=== PATIENT | male | born 1950 | race Caucasian/White ===

== ENCOUNTER → 2016-12-26 | Outpatient (CLI) | payer BC | LOC: CIMAGING 09:46 | PROVIDERS: ATTEND Family Medicine | DX: R07.81 Pleurodynia (principal) | CPT/HCPCS: 71022-PO ==

== ENCOUNTER 2017-08-13 17:16 | Emergency (ER) | payer BC ==
--- NOTE | 2017-08-13 17:37 | CPEKG ---
Heart Rate: 54 RR Interval: 1111 P-R Interval: 172 QRSD Interval: 84 QT Interval: 396 QTC Interval: 376 P [place]: 56 QRS [place]: -14 T Wave [place]: 19 EKG Severity - BORDERLINE ECG - EKG Impression: SINUS RHYTHM EKG Impression: PROBABLE LEFT ATRIAL ABNORMALITY Electronically Signed By: Oni Kirkland 13-Aug-2017 19:55:19
--- NOTE | 2017-08-13 17:46 | EDPHY ---
H & P Time Seen by Provider: 08/13/17 17:37 HPI/ROS: Chief complaint. Atrial fibrillation HPI. 66-year-old male with history of atrial fibrillation presents with complaint of episode of rapid and irregular heart rate that began about midnight. It was fast and pounding and irregular. He continued this morning and he took a metoprolol. He he also felt that maybe exercise could be helpful so he played golf this morning. However he was very lightheaded and felt like he could pass out with standing. He feels somewhat better now. He does have some burning chest discomfort and cough that he thinks is caused by developing illness. His chest hurts more when he coughs but not with taking a deep breath. He is on Eliquis. He has had similar symptoms of atrial fibrillation previously and has previously taken metoprolol for this. However this time the symptoms continued longer than usual. ROS Constitutional. Lightheaded Eyes. no problems with vision ENT. no sore throat, no nasal drainage Cardiovascular. Burning precordial chest discomfort with coughing; irregular heartbeat that was fast and pounding Respiratory. No short rest but cough Abdominal. no abdominal pain, no nausea/vomiting, no diarrhea . no problems urinating MS. no calf pain/swelling, no neck/back pain, no joint pain Skin. no rash Lymph. no swollen glands Neuro. no headache, no dizziness, no difficulty walking or with speech Past Medical/Surgical History: Past medical history asthma and atrial fibrillation. Patient is on Eliquis Social History: , daily smoker, no alcohol Smoking Status: Current some day smoker Physical Exam: General Appearance: Alert well-developed male mild distress vital signs are stable. Heart rate 58. Blood pressure 107/71 Eyes: Pupils equal and round no pallor or injection. ENT, Mouth: Mucous membranes are moist. Respiratory: There are no retractions, lungs are clear to auscultation. Cardiovascular: Regular rate and rhythm. Gastrointestinal: Abdomen is soft and nontender, no masses, bowel sounds normal. Neurological: Awake and alert, sensory and motor exams grossly normal. Skin: Warm and dry, no rashes. Musculoskeletal: Neck is supple nontender. Extremities symmetrical, full range of motion. Psychiatric: Patient is oriented X 3, there is no agitation. Constitutional: Initial Vital Signs Temperature (C) 36.7 C 08/13/17 17:23 Heart Rate 58 L 08/13/17 17:23 Respiratory Rate 17 08/13/17 17:23 Blood Pressure 107/71 08/13/17 17:23 O2 Sat (%) 96 08/13/17 17:23 O2 Delivery Mode Room Air Allergies/Adverse Reactions: No Known Allergies Allergy (Verified 08/13/17 17:22) Home Medications: Medication Instructions Recorded Albuterol Hfa Anes Only 04/13/16 Corticosteriod, Inhaled 04/13/16 Eliquis 08/13/17 Metoprolol Oral Susp (*) 08/13/17 Propafenone HCl 08/13/17 Medical Decision Making - Diagnostics EKG Interpretation: EKG interpreted by me shows a normal sinus rhythm with normal interval and axis. QRS is normal there is no significant ST elevation or depression. No arrhythmia. The rate is 54 Imaging Results: Imaging Impressions Chest X-Ray 08/13/17 18:00 Impression: Negative portable chest View chest x-ray interpreted by me is negative. No evidence for pneumonia Procedures: IV normal saline with 1 L of saline given because of slightly low blood pressure ED Course/Re-evaluation: Re-evaluation the p.m.. The patient and I and his discussed imaging, EKG, laboratory results. The patient feels well. His blood pressure currently is 114/63 after 1 L of fluid. We will road test this patient before making disposition Patient feels well during ambulation in the department. He has no symptoms. He feels well to go home. He is offered admission however he feels fine and does not wish to stay. Patient is encouraged in easy activity as well as criteria for return importance of follow-up and further evaluation. He has an appointment with his insurance risk manager tree he 0 on Monday Differential Diagnosis: Sounds like the patient had an episode of atrial fibrillation last night and today. I considered acute coronary syndrome but I am not finding evidence of this with normal troponin. He is back in sinus rhythm. I think is light headedness was due to low blood pressure secondary to taking metoprolol. The workup normal and he feels well to go home. - Data Points Laboratory Results: Laboratory Results 08/13/17 17:40 08/13/17 17:40 08/13/17 08/13/17 17:40 17:40 WBC 10.92 10^3/uL H 10^3/uL (3.80-9.50) RBC 5.46 10^6/uL 10^6/uL (4.40-6.38) Hgb 15.8 g/dL g/dL (13.7-17.5) Hct 46.4 % % (40.0-51.0) MCV 85.0 fL fL (81.5-99.8) MCH 28.9 pg pg (27.9-34.1) MCHC 34.1 g/dL g/dL (32.4-36.7) RDW 12.6 % % (11.5-15.2) Plt Count 224 10^3/uL 10^3/uL (150-400) MPV 10.0 fL fL (8.7-11.7) Neut % (Auto) 70.8 % % (39.3-74.2) Lymph % (Auto) 17.6 % % (15.0-45.0) Collin % (Auto) 7.8 % % (4.5-13.0) Eos % (Auto) 2.7 % % (0.6-7.6) Baso % (Auto) 0.8 % % (0.3-1.7) Nucleat RBC Rel Count 0.0 % % (0.0-0.2) Absolute Neuts (auto) 7.73 10^3/uL H 10^3/uL (1.70-6.50) Absolute Lymphs (auto) 1.92 10^3/uL 10^3/uL (1.00-3.00) Absolute Monos (auto) 0.85 10^3/uL H 10^3/uL (0.30-0.80) Absolute Eos (auto) 0.30 10^3/uL 10^3/uL (0.03-0.40) Absolute Basos (auto) 0.09 10^3/uL 10^3/uL (0.02-0.10) Absolute Nucleated RBC 0.00 10^3/uL 10^3/uL (0-0.01) Immature Gran % 0.3 % % (0.0-1.1) Immature Gran # 0.03 10^3/uL 10^3/uL (0.00-0.10) Sodium 143 mEq/L mEq/L (134-144) Potassium 4.3 mEq/L mEq/L (3.5-5.2) Chloride 110 mEq/L mEq/L (97-110) Carbon Dioxide 21 mEq/l L mEq/l (22-31) Anion Gap 12 mEq/L mEq/L (8-16) BUN 21 mg/dL mg/dL (7-23) Creatinine 1.0 mg/dL mg/dL (0.7-1.3) Estimated GFR > 60 Glucose 87 mg/dL mg/dL (70-100) Calcium 9.5 mg/dL mg/dL (8.5-10.4) Troponin I < 0.012 ng/mL ng/mL (0.000-0.034) Medications Given: Discontinued Medications Sodium Chloride (Ns) 1,000 mls @ 0 mls/hr IV EDNOW ONE; Wide Open PRN Reason: Protocol Stop: 08/13/17 18:01 Last Admin: 08/13/17 18:30 Dose: 1,000 mls Departure - Departure Disposition: Home, Routine, Self-Care Clinical Impression: Atrial fibrillation Qualifiers: Atrial fibrillation type: paroxysmal Qualified Code(s): I48.0 - Paroxysmal atrial fibrillation Condition: Good Instructions: A-fib (Atrial Fibrillation) (ED) Additional Instructions: Return for worsening chest discomfort, trouble breathing, sense of passing out. Easy activity the next 24 hr to help keep you from passing out. Keep your appointment with Dr. Arias on Monday Referrals: Kwasi Arias MD [Primary Care Provider] - 1-2 days without fail
[2017-08-13] MEDS ORDERED: NS 1,000 ML IV ONE (18:00)
[2017-08-13 18:12] LABS: % IMMATURE GRANULYOCYTES 0.3 % (0.0-1.1); ABSOLUTE IMMATURE GRANULOCYTES 0.03 10^3/uL (0.00-0.10); ADD DIFF? NO; ADD MORPH? NO; ADD SCAN? NO; ATYPICAL LYMPHOCYTE FLAG 0 (0-99); FRAGMENT RBC FLAG 0 (0-99); HEMATOCRIT 46.4 % (40.0-51.0); HEMOGLOBIN 15.8 g/dL (13.7-17.5); LEFT SHIFT FLG 0 (0-99); LIPEMIA HEMOLYSIS FLAG 90 (0-99); MEAN CELL HEMOGLOBIN 28.9 pg (27.9-34.1); MEAN CELL HEMOGLOBIN CONCENTR. 34.1 g/dL (32.4-36.7); PLATELET CLUMPS FLAG 0 (0-99); PLATELET COUNT 224 10^3/uL (150-400); RED BLOOD CELL COUNT 5.46 10^6/uL (4.40-6.38); RED CELL DISTRIBUTION WIDTH 12.6 % (11.5-15.2)
[2017-08-13 18:24] LABS: ANION GAP 12 mEq/L (8-16); CALCIUM 9.5 mg/dL (8.5-10.4); CARBON DIOXIDE 21 mEq/l (22-31); CHLORIDE 110 mEq/L (97-110); GLOMERULAR FILTRATION RATE > 60; GLUCOSE 87 mg/dL (70-100); POTASSIUM 4.3 mEq/L (3.5-5.2); SODIUM 143 mEq/L (134-144)
[2017-08-13 18:35] LABS: TROPONIN I < 0.012 ng/mL (0.000-0.034)
[2017-08-13 19:07] VITALS: RESP 16
[2017-08-13 19:45] VITALS: BP 114/63; PULSE 55; TEMP 98.1; O2SAT 98
== END 2017-08-13 19:43 | disposition home or self-care (01) ==
DX: I48.0 Paroxysmal atrial fibrillation (principal); F17.200 Nicotine dependence, unspecified, uncomplicated; J45.909 Unspecified asthma, uncomplicated; E86.9 Volume depletion, unspecified; Z79.01 Long term (current) use of anticoagulants

== ENCOUNTER → 2017-12-05 | Outpatient (CLI) | payer BC ==
[~2017-12-05] MED LIST: IOPAMIDOL (ISOVUE 370) 100 ML BTL IV ONE
== END ==
LOC: FIMAGING 10:34
PROVIDERS: ATTEND Internal Medicine Cardiovascular Disease
DX: J98.4 Other disorders of lung (principal); I48.0 Paroxysmal atrial fibrillation
CPT/HCPCS: Q9967

== ENCOUNTER 2017-12-12 06:55 | Observation (INO) | payer BC ==
[2017-12-12] MEDS ORDERED: NS 1,000 ML IV ONE (07:01)
--- NOTE | 2017-12-12 07:16 | CPEKG ---
Heart Rate: 50 RR Interval: 1200 P-R Interval: 168 QRSD Interval: 84 QT Interval: 416 QTC Interval: 380 P [place]: 70 QRS [place]: -5 T Wave [place]: 23 EKG Severity - NORMAL ECG - EKG Impression: SINUS RHYTHM Electronically Signed By: Jose Martin Zhou 12-Dec-2017 08:32:01
[2017-12-12 07:43] LABS: PLATELET COUNT 216 10^3/uL (150-400)
[2017-12-12 07:52] LABS: INR 0.98 (0.83-1.16); PROTIME(PATIENT) 13.2 SEC (12.0-15.0)
[2017-12-12] MEDS ORDERED: LIDOCAINE 1% 300 MG/30 ML SDV ONE (08:15)
[2017-12-12] MEDS ORDERED: HEPARIN 10,000 UNIT/10 ML MDV (1,000 UNIT/ML) ONE (08:15)
[2017-12-12] MEDS ORDERED: HEPARIN/DEXTROSE 25,000 UNIT/500 ML BAG ONE (08:15)
[2017-12-12] MEDS ORDERED: BUPIVACAINE 0.5% 30 ML SDV ONE (08:15)
[2017-12-12] MEDS ORDERED: IOPAMIDOL (ISOVUE-300) 100 ML BTL ONE (08:16)
[2017-12-12] MEDS ORDERED: MIDAZOLAM 2 MG/2 ML VIAL IVP ONE (08:26)
--- NOTE | 2017-12-12 08:26 | PDANEPAE ---
ANE History of Present Illness Patient presents for a-fib ablation ANE Past Medical History - Cardiovascular History Hx Arrhythmias: Yes Hx Coronary Artery / Peripheral Vascular Disease: Yes - Pulmonary History Hx Asthma/Reactive Airway Disease: Yes Hx Oxygen in Use at Home: No Hx Sleep Apnea: No - Endocrine History Hx Diabetes: No ANE Review of Systems Review of Systems: - Exercise capacity Exercise capacity: >=4 METS ANE Patient History - Allergies Allergies/Adverse Reactions: No Known Allergies Allergy (Verified 08/13/17 17:22) - Home Medications Home medications: home medication list seen and reviewed Home Medications: Propafenone HCl [Rythmol 150mg (*)] 150 mg PO DAILY PRN 08/13/17 [Last Taken Unknown] Albuterol [Proventil Inhaler HFA (*)] 1 - 2 puffs IH Q4H PRN 12/08/17 [Last Taken Unknown] Budesonide/Formoterol 160/4.5 [Symbicort 160-4.5 Mcg Inh (*)] 1 puffs IH DAILY 12/08/17 [Last Taken 12/12/17 06:00] Cetirizine [ZyrTEC 10 mg (*)] 10 mg PO DAILY 12/08/17 [Last Taken 12/10/17 08:00 ] Metoprolol Tartrate [Lopressor 50 mg (*)] 50 mg PO DAILY PRN 12/08/17 [Last Taken Unknown] Omeprazole 20 mg PO DAILY 12/08/17 [Last Taken 12/11/17 15:00] - NPO status NPO Status: no food or drink >8 hours - Anes Hx Anes Hx: no prior problems - Smoking Hx Smoking Status: Current some day smoker ANE Labs/Vital Signs - Labs Result Diagrams: 12/12/17 07:15 12/12/17 07:15 - Vital Signs Height: 185.42 cm Weight: 94.347 kg ANE Physical Exam - Airway Neck exam: FROM Mallampati Score: Class 1 Mouth exam: normal dental/mouth exam, small mouth opening - Pulmonary Pulmonary: no respiratory distress - Cardiovascular Cardiovascular: regular rate and rhythym - ASA Status ASA Status: III ANE Anesthesia Plan Anesthesia Plan: general endotracheal anesthesia (RBA discussed)
[2017-12-12] MEDS ORDERED: fentaNYL 100 MCG/2 ML INJ ONE (08:28)
[2017-12-12] MEDS ORDERED: PROPOFOL 200 MG/20 ML VIAL ONE (08:29)
--- NOTE | 2017-12-12 08:33 | PDGENHP ---
History & Physical Chief Complaint: symptomatic afib History of Present Illness: palpitations Relevant Physical Exam: s1s2 rrr cta ao3 Cardiorespiratory Assessment: symptomatic paf for ablation. ct scan with ground glass appearance, had severe cold in September, sx have resolved, have asked him to make appt with cami rodriguez/lizy and his will make appt today
[2017-12-12] MEDS ORDERED: ONDANSETRON 4 MG/2 ML VIAL ONE (09:32)
[2017-12-12] MEDS ORDERED: DEXAMETHASONE 4 MG/ML VIAL ONE (09:32)
[2017-12-12] MEDS ORDERED: PROTAMINE SULFATE 50 MG/5 ML VIAL IVP ONE (10:49)
--- NOTE | 2017-12-12 11:25 | EPPROC ---
Electrophysiology Procedure Note: ELECTROPHYSIOLOGIC STUDY AND BALLOON-CATHETER MEDIATED CRYOABLATION FOR PAROXSYMAL ATRIAL FIBRILLATION Procedures performed: 98036-32 EP evaluation with RA/RV/LA pace/record, with arrhythmia induction 37507-67 EP evaluation with RA/RV pace record, insert/reposition catheter, with arrhythmia induction 18275 Atrial fibrillation ablation Intracardiac echocardiogram Transseptal puncture Fluoroscopy INDICATION: Paroxysmal atrial fibrillation PROCEDURE: The patient arrived in the Electrophysiology Laboratory in the fasting state. The right groin, left groin and right infraclavicular area were prepped and draped in the usual sterile fashion. Anesthesiologist administered general anesthesia. All catheters were placed percutaneously using the Seldinger technique and advanced into position under fluoroscopic guidance. One #7 Spanish deflectable octapolar electrode catheter was placed in the His-bundle position via the left femoral vein (2mm spacing, IVC electrode for unipolar recordings). This catheter was placed in the coronary sinus after transseptal puncture and later placed in the SVC-R subclavian vein junction to pace the right phrenic nerve during right pulmonary vein ablation. One #8 Spanish AcuNaV ultrasound catheter was placed in the left femoral vein and advanced into the right atrium. One #4 Spanish sheath was inserted into the left femoral artery via percutaneous technique and used for continuous arterial blood pressure monitoring and intermittent ACT determination. Programmed stimulation was performed from the right atrium, left atrium (CS) and right ventricle. There was no evidence of AV accessory pathway. Intracardiac echo evaluation of the left atrium and pulmonary veins was performed. Baseline ACT was drawn and heparin bolus was administered and heparin drip was started prior to transseptal puncture. ACT was checked every 15 minutes and maintained in the range of 350-400 seconds. One 14Fr short sheath was placed in the right femoral vein. One 8Fr SL1 sheath was advanced into the right atrium via the 14Fr short sheath. Transseptal puncture was performed under intracardiac ultrasound, fluoroscopic and hemodynamic guidance placing the sheath into the left atrium. [place]ell RF needle ( C0 curve) was used. The mean left atrial pressure was 6 mmHg. Pulmonary vein angiogram was done using SL1 sheath. CT angiography of pulmonary veins was done previously. There were distinct LSPV, LIPV, RSPV and RIPV. The SL1 sheath was exchanged for a DTU CORPtronic Flexcath sheath using an Amplatz stiff guide wire. A 28 mm Cryoballoon catheter with a 20 mm Achieve catheter was placed via the sheath into the left atrium. Intracardiac ultrasound and PV angiograms were used to assist in placing the mapping catheter at the antrum of the pulmonary veins. All pulmonary veins were isolated successfully using cryoballoon ablation using freeze/thaw/freeze cycles at 2-3-minute intervals, with good [id number] of isolation. Coumadin ridge/Ligament of Aneesh region was ablated. Pre and post pulmonary vein recordings were measured on the spiral Achieve catheter to ensure complete pulmonary vein isolation. During the right-sided ablation, phrenic nerve pacing was performed to assess the phrenic nerve strength ( manually and with ICE visualization of liver movement during phrenic capture) and the phrenic nerve was intact throughout the right-sided ablation and at the end of the procedure. An esophageal temperature probe (12 electrode, Circa) was placed by the anesthesiologist at the beginning of the procedure. Esophageal temperature was monitored continuously and cryoablation was interrupted if esophageal temperature was <15 C. Cryoapplications 8 total cryoablation time 1300 s. ICE imaging post ablation was consistent with pre ablation imaging with no changes noted, moreover there was no left atrial/left ventricular thrombus and no pericardial effusion. The catheters were withdrawn. Protamine was given. Venous vascular access sheaths were removed in the EP lab after placing subcutaneous pursestring suture. Arterial sheath was left in place. The patient was recovered from anesthesia. There were no complications. The patient was arousable and moving all four extremities at the end of the procedure. CONCLUSIONS: 1. Paroxysmal atrial fibrillation. 2. Successful pulmonary vein isolation procedure (left and right pulmonary vein antrum) using cryoballoon ablation. 3. No apparent complications. Patient Problems: Problems Problem Status Onset Atrial fibrillation Acute Diaphoresis Acute
[2017-12-12] MEDS ORDERED: METOPROLOL TARTRATE 50 MG TAB PO PRN (11:30)
[2017-12-12] MEDS ORDERED: ALBUTEROL 60 PUFFS/8 GM MDI IH PRN (11:30)
--- NOTE | 2017-12-12 11:41 | POSTANESTH ---
Post Anesthetic Evaluation Cardiovascular Status: Similar to Pre-Op Cond Respiratory Status: Similar to Pre-op Cond. Level of Consciousness/Mental Status: Alert and Oriented Pain Control: Adequate, Prn Tx Ordered Nausea/Vomiting Control: Adequate, Prn Tx Ordered Complications Possibly Related to Anesthesia: None Noted
--- NOTE | 2017-12-12 13:18 | CPEKG ---
Heart Rate: 54 RR Interval: 1111 P-R Interval: 160 QRSD Interval: 90 QT Interval: 452 QTC Interval: 429 P [place]: 71 QRS [place]: -15 T Wave [place]: 18 EKG Severity - BORDERLINE ECG - EKG Impression: SINUS RHYTHM EKG Impression: BORDERLINE LEFT AXIS DEVIATION EKG Impression: BORDERLINE ST ELEVATION, ANTEROLATERAL LEADS (no change from previous) Electronically Signed By: Jose Martin Zhou 12-Dec-2017 14:23:24
[2017-12-12] MEDS: APIXABAN 5 MG TAB PO SCH (21:03)
[2017-12-13 05:47] LABS: PLATELET COUNT 197 10^3/uL (150-400)
[2017-12-13 05:55] LABS: INR 1.03 (0.83-1.16); PROTIME(PATIENT) 13.7 SEC (12.0-15.0)
[2017-12-13 05:59] LABS: CREATINE KINASE 268 IU/L (0-224)
[2017-12-13] MEDS: APIXABAN 5 MG TAB PO SCH (07:43)
--- NOTE | 2017-12-13 08:47 | CPEKG ---
Heart Rate: 52 RR Interval: 1154 P-R Interval: 160 QRSD Interval: 92 QT Interval: 424 QTC Interval: 395 P [place]: 66 QRS [place]: -33 T Wave [place]: 38 EKG Severity - OTHERWISE NORMAL ECG - EKG Impression: SINUS RHYTHM EKG Impression: LEFT AXIS DEVIATION Electronically Signed By: Jose Martin Zhou 13-Dec-2017 11:50:34
[2017-12-13] MEDS ORDERED: CETIRIZINE 10 MG TAB PO SCH (09:00)
[2017-12-13] MEDS ORDERED: NON-FORMULARY NEW DRUG (Omeprazole [Omeprazole] 20 MG) PO SCH (09:00)
[2017-12-13] MEDS ORDERED: BUDESONIDE/FORMOTEROL 160/4.5 60 PUFFS/MDI IH SCH (09:00)
[2017-12-13] MEDS ORDERED: PANTOPRAZOLE SODIUM 40 MG TAB PO SCH (09:00)
[2017-12-13 11:18] VITALS: BP 102/74
--- NOTE | 2017-12-13 11:45 | ECHO ---
[email or web address] [address] [address] Main: [phone] Fax: Transthoracic Echocardiogram Name: DARWIN RENDON MR#: [id number] Study Date: 12/13/2017 Study Time: 10:18 AM Date of : 1950 Age: 67 year(s) Height: 185.4 cm (73 in.) Weight: 94.8 kg (209 lb.) BSA: 2.19 m2 Gender: Male Examination: Echo Indication: F/U post EP study Image Quality: Adequate Contrast: Requested by: Ana Bowden BP: / Heart Rate: Rhythm: Indication: F/U post EP study Procedure Staff Squad Boss: Shana Alonzo RDCS Reading Physician: Kwasi Arias MD Requesting Provider: Conclusions: Normal study Measurements: Chambers Valvular Assessment AV/MV Valvular Assessment TV/PV Normal Normal Normal Name Value Range Name Value Range Name Value Range Ao Anai (2D): 3.0 cm (1.4 cm-2.6 AV meanP mmHg ( - ) PV Vmax: 0.90 m/s (0.6 m/s-0.9 cm) FRANCES (VTI): 2.7 cm ( - ) m/s) IVSd (2D): 1.0 cm (0.6 cm-1.1 MV E Vmax: 0.97 m/s ( - ) PV PGmax: 3 mmHg ( - ) cm) MV A Vmax: 0.76 m/s ( - ) LVDd (2D): 4.6 cm (4.2 cm-5.9 MV E/A: 1.28 ( - ) cm) MV PHT: 0.069 s ( - ) LVDs (2D): 2.9 cm (2.1 cm-4 cm) MVA (PHT): 3.2 s ( - ) LVPWd (2D): 1.0 cm (0.6 cm-1 cm) LVOTd 2.0 cm 2.0 cm mm LVEF (BP): 62 % (>=55 %) RVDd(2D): 3.2 cm (1.9 cm-3.8 cmmm) Continued Measurements: Chambers Valvular Assessment AV/MV Valvular Assessment TV/PV Name Value Name Value Name Value LADs: 4.0 cm MV DecTime: 180 m/s CVP (est.): 5 mmHg LADs Lon.6 cm MV E' Septal: 0.08 m/s LA Area: 17.8 cm2 MV E/E' Septal: 12.00 LA Volume: 49 ml MV E/E' Lateral: 9.90 LA Volume Index: 22.4 ml/m2 Patient: DARWIN RENDON Study Date: 12/13/2017 Page 1 of 2 10:18 AM Additional Vessels Name Value Ao Ascendin.6 cm Inferior Vena Cava: 1.0 cm Findings: Left Ventricle: Normal size left ventricle. No LV hypertrophy. Normal global systolic LV function. EF is 62 %. No regional wall motion abnormality. Normal diastolic LV function. Right Ventricle: Normal size right ventricle. Normal RV function. Left Atrium: The left atrium is normal in size. Right Atrium: The right atrium is normal in size. Mitral Valve: The mitral valve is normal in appearance and function. Mild mitral valve regurgitation is present. No mitral stenosis is present. Aortic Valve: The aortic valve is normal in appearance and function. There is no aortic valve regurgitation. No aortic valve stenosis is present. Tricuspid Valve: The tricuspid valve is normal in appearance and function. Trivial tricuspid valve regurgitation. Pulmonic Valve: The pulmonic valve is normal in appearance and function. There is no pulmonic regurgitation seen. Aorta: The aorta is normal. Normal size aortic root measuring 3.0 cm. Normal size ascending aorta measuring 2.6 cm. Pericardium: No pericardial effusion. (No Signature Object) Patient: DARWIN RENDON Study Date: 12/13/2017 Page 2 of 2 10:18 AM [id number]
--- NOTE | 2017-12-13 13:42 | GDS ---
[f rep st] DISCHARGE SUMMARY DISCHARGE DIAGNOSES: 1. Paroxysmal atrial fibrillation, status post cryoballoon ablation. 2. Scattered ground-glass opacities seen on CT. HOSPITAL COURSE: For detailed H and P, please see prior dictation. Briefly, the patient is a 67-year-old male with a history of paroxysmal atrial fibrillation with even ts occurring every 6 weeks. He was on a [id number]-hn-whl-pocket routine where he would take propafenone a nd metoprolol as needed for palpitations. He would typically wake up in the morning and be back in n ormal sinus rhythm. When in atrial fibrillation, he complained of lightheadedness and 1 presyncopal event. Ultimately, he had a consultation with Dr. Jose Martin Zhou and decided to proceed with a cryoballo on ablation. This was performed on December 12, and the procedure was uncomplicated. The following m orning, his troponin was 15.2. His EKG revealed sinus bradycardia with nonspecific ST and T-wave willy nges. His echocardiogram results revealed preserved LV function with ejection fraction of 62% withou t any evidence of pericardial effusion. The following morning he denied any chest discomfort. He had occasional palpitations and had been mo nitored on telemetry. He had a few brief runs of atrial tachycardia. He denied any discomfort of hi s groins. He had a CT prior to his ablation which showed scattered ground-glass opacities. A CT was recommende d in 3-6 months to track this. He has been given pulmonary information. He will contact them when h elsa gets home to schedule a consultation. He does have a history of asthma and prior tobacco use. PHYSICAL EXAMINATION: GENERAL: Patient appears in no acute distress. VITALS: Blood pressure 102/7 4, heart rate 56, oxygen saturation 99% on room air, afebrile. LUNGS: Clear to auscultation. No wh eezes, rhonchi, or crackles auscultated. CARDIAC: Regular rate and rhythm without any significant m urmurs, rubs, or gallops appreciated. EXTREMITIES: Bilateral groins where access was obtained for t he EP study and ablation are clean, intact, without any evidence of infection or hematoma. DISCHARGE MEDICATIONS: Eliquis 5 mg b.i.d., Zyrtec 10 mg daily, metoprolol 50 mg p.r.n. for tachycar anel, Symbicort daily, albuterol p.r.n., omeprazole 20 mg daily. Propafenone has been discontinued. PLAN: The patient is currently stable and ready for discharge home. He has been given groin precaut ions. He will follow up as scheduled with Dr. Jose Martin Zhou on December 27 at 3:30 p.m. He is also awar e that he is to make a consultation with Pulmonology secondary to the ground-glass opacities seen on CT scan. Greater than 30 minutes was spent coordinating the patient's care today. /[id number]
== END 2017-12-13 11:53 | disposition home or self-care (01) ==
LOC: FLAB 06:55 → F2N 10:21
PROVIDERS: ADMIT Internal Medicine Cardiovascular Disease; ATTEND Internal Medicine Cardiovascular Disease
PROC: 02K83ZZ Map Conduction Mechanism, Percutaneous Approach (ICD-10-PCS; principal; 2017-12-12)
PROC: 025S3ZZ Destruction of Right Pulmonary Vein, Percutaneous Approach (ICD-10-PCS; principal; 2017-12-12)
PROC: B245ZZ4 Ultrasonography of Left Heart, Transesophageal (ICD-10-PCS; principal; 2017-12-12)
DX: I48.0 Paroxysmal atrial fibrillation (principal); R91.8 Other nonspecific abnormal finding of lung field; F17.200 Nicotine dependence, unspecified, uncomplicated; J45.909 Unspecified asthma, uncomplicated; Z79.01 Long term (current) use of anticoagulants
CPT/HCPCS: 93005; 93306; 93312; 93613; 93656; 93662; C1893; G0378; C1730; C1731; C1732; C1733; C1759; C1766; J1100; J1644; J2250; J2405; J2704; J2720; J3010; Q9967